=== PATIENT | male | born 1980 | race African-American/Black ===

== ENCOUNTER → 2016-06-29 | Outpatient (CLI) | payer BC | END | disposition home or self-care (01) | LOC: RAD 15:36 | PROVIDERS: ATTEND Registered Nurse | DX: M47.892 Other spondylosis, cervical region (principal); M46.1 Sacroiliitis, not elsewhere classified; M79.604 Pain in right leg | CPT/HCPCS: 72040; 72110 ==

== ENCOUNTER → 2016-07-18 | Outpatient (CLI) | payer BC | END | disposition home or self-care (01) | LOC: RAD 14:11 | PROVIDERS: ATTEND Nurse Practitioner | DX: M46.1 Sacroiliitis, not elsewhere classified (principal) ==